=== PATIENT | male | born 1970 | race African-American/Black ===

== ENCOUNTER → 2017-01-07 | Outpatient (CLI) | payer OTHER ==
--- NOTE | 2017-01-07 14:48 | MAMMOGRAPHY REPORT ---
MALE BILATERAL DIGITAL DIAGNOSTIC MAMMOGRAM TOMOSYNTHESIS WITH CAD AND TARGETED RIGHT ULTRASOUND: 12/19 CLINICAL HISTORY: The patient is a transgender male who had prior bilateral breast silicone injection s in the . He reports a palpable lump in the right breast which has been there since he receive d the injections and is not changed. He denies any new palpable lumps or other new complaints. He i s on hormone therapy. TECHNIQUE: Breast tomosynthesis in addition to standard 2D mammography was performed. Current study was also evaluated with a Computer Aided Detection (CAD) system. Bilateral CC and MLO 2-D and tomosy nthesis images are obtained. COMPARISON: No prior exams were available for comparison. BREAST COMPOSITION: The tissue of both breasts is extremely dense, which lowers the sensitivity of m ammography. FINDINGS: There are innumerable round/oval dense masses throughout both breasts, some of which demon strate rim calcification, consistent with silicone nodules from prior silicone injections. The silic one nodules significantly limit evaluation of the breast parenchyma. A triangle marker cooper the sit e of the stable palpable lump in the right upper outer quadrant. Multiple silicone nodules are seen in this region, with no suspicious mass or architectural distortion noted, although again the exam is significantly limited. No suspicious masses, calcifications, or areas of architectural distortion a re noted within either breast within the limitations of the exam. Targeted ultrasound was performed of the area of the palpable lump pointed out by the patient, in the right 10:00 breast. There is echogenic tissue anteriorly with dense posterior acoustic shadowing, c onsistent with silicone. The posterior shadowing of the silicone obscures tissues posteriorly, there fore the breast parenchyma cannot be adequately evaluated on ultrasound. IMPRESSION: ACR BI-RADS CATEGORY 2: BENIGN, TARGETED ULTRASOUND ACR BI-RADS CATEGORY 2: BENIGN Limited exam as described above due to diffuse bilateral silicone nodules related to prior silicone i njections. Multiple silicone nodules seen within the right upper outer quadrant which likely corresp ond with the palpable right breast lump; note that the lump is unchanged clinically to the patient fo r years. There is no mammographic or targeted sonographic evidence of malignancy. Recommend clinical follow-up for palpable findings, and recommend routine bilateral screening mammograms in one year as the patient is on hormone therapy. The patient has been verbally notified of the results. Approximately 10% of breast cancers are not detected with mammography. A negative mammographic report should not delay biopsy if a clinically suggestive mass is present. Soledad Fernandez M.D. ah/:01/07/2017 08:35:37 Hair Machine Operator: Malcolm [email or web address])(Molly), [facility] letter sent: Normal 1/2 BI-RADS Code: ACR BI-RADS Category 2: Benign Ultrasound BI-RADS: ACR BI-RADS Category 2: Benign
== END | disposition home or self-care (01) ==
LOC: C.MAMM 07:51
PROVIDERS: ATTEND Internal Medicine
DX: B20 Human immunodeficiency virus [HIV] disease (principal); N63 Unspecified lump in breast; E55.9 Vitamin D deficiency, unspecified; F32.9 Major depressive disorder, single episode, unspecified; F41.9 Anxiety disorder, unspecified; F64.1 Dual role transvestism; J31.0 Chronic rhinitis; K21.9 Gastro-esophageal reflux disease without esophagitis; K59.00 Constipation, unspecified